=== PATIENT | female | born 2000 | race Caucasian/White ===

== ENCOUNTER → 2023-12-29 12:57 | Outpatient (REF) | payer BC, SELFPAY | LOC: HWRAD 12:57 | PROVIDERS: ATTENDING PHYSICIAN Physician Assistant Medical | DX: R82.90 Unspecified abnormal findings in urine (principal) | CPT/HCPCS: 76770 ==

== ENCOUNTER → 2024-05-19 14:15 | Outpatient (REF) | payer BC, SELFPAY | LOC: HWRAD 14:15 | PROVIDERS: ATTENDING PHYSICIAN Physician Assistant Medical | DX: R22.1 Localized swelling, mass and lump, neck (principal) | CPT/HCPCS: 76536 ==